=== PATIENT | female | born 1995 | race Caucasian/White ===

== ENCOUNTER 2017-01-02 09:18 | Emergency (ER) | payer BC ==
[2017-01-02 09:53] VITALS: BP 125/63
--- NOTE | 2017-01-02 09:56 | ED ---
GI/ HPI - HPI Summary HPI Summary: 21 yr old female with the complaint of dysuria, frequency and hesitancy of urination. Onset this morning. she states her sympoms are moderate. She has a history of prior UTI and feels like that is what is going on now. She is on oral contraceptives. She denies fever, chills, back pain. She has no other complaints. - History of Current Complaint Chief Complaint: UCGU Time Seen by Provider: 01/02/17 09:32 Stated Complaint: URINARY COMPLAINT Hx Obtained From: Patient Hx Last Menstrual Period: 3 weeks Onset/Duration: Started Days Ago - 1 Severity: Mild Current Severity: Mild Associated Signs and Symptoms: Positive: Dysuria, UTI Symptoms Aggravating Factor(s): Urination - Allergy/Home Medications Allergies/Adverse Reactions: Allergies Allergy/AdvReac Type Severity Reaction Status Date / Time Sulfamethoxazole Allergy Rash Verified 01/02/17 09:38 w/Trimethoprim [From Bactrim] Home Medications: Home Medications buPROPion TAB* [Wellbutrin TAB*] 75 mg PO DAILY 01/02/17 [History Confirmed ] PMH/Surg Hx/FS Hx/Imm Hx Endocrine/Hematology History: Denies: Hx Diabetes Respiratory History: Denies: Hx Asthma - Immunization History Immunizations Up to Date: Yes Infectious Disease History: No Infectious Disease History: Denies: Traveled Outside the [place] in Last 30 Days - Family History Known Family History: Positive: Cardiac Disease - MATERNAL GRANDFATHER STOKE X 2 Negative: Hypertension, Diabetes - Social History Alcohol Use: Occasionally Substance Use Type: Reports: None Smoking Status (MU): Never Smoked Tobacco Review of Systems Constitutional: Negative Eyes: Negative ENT: Negative Cardiovascular: Negative Respiratory: Negative Positive: dysuria, frequency All Other Systems Reviewed And Are Negative: Yes Physical Exam Triage Information Reviewed: Yes Vital Signs On Initial Exam: Initial Vitals Temp Pulse Resp BP 98.1 F 63 18 125/63 01/02/17 09:33 01/02/17 09:33 01/02/17 09:33 01/02/17 09:33 Vital Signs Reviewed: Yes Appearance: Positive: Well-Appearing, No Pain Distress Skin: Positive: Warm Head/Face: Positive: Normal Head/Face Inspection Eyes: Positive: EOMI ENT: Positive: Normal ENT inspection Respiratory/Lung Sounds: Positive: Clear to Auscultation, Breath Sounds Present Cardiovascular: Positive: RRR. Negative: Murmur Abdomen Description: Positive: Nontender Musculoskeletal: Positive: Strength/ROM Intact Neurological: Positive: Sensory/Motor Intact, Alert, Oriented to Person Place, Time, CN Intact II-III Psychiatric: Positive: Normal - [place] Coma Scale Best Eye Response: 4 - Spontaneous Best Motor Response: 6 - Obeys Commands Best Verbal Response: 5 - Oriented Diagnostics - Vital Signs Vital Signs Temp Pulse Resp BP 01/02/17 09:33 98.1 F 63 18 125/63 - Laboratory Lab Results: Lab Results 01/02/17 Range/Units 09:33 POC Urine Color Yellow POC Urine Clarity Cloudy POC Urine pH 6.0 (5-9) POC Ur Specif [place] >= 1.030 (1.010-1.030) POC Urine Protein Trace H (Negative) POC Ur Glucose (UA) Negative (Negative) POC Urine Ketones Negative (Negative) POC Urine Blood Trace-intact H (Negative) POC Urine Nitrite Negative (Negative) POC Urine Bilirubin Negative (Negative) POC Urine Urobilinogen 0.2 (Negative) POC U Leukocyte Esteras 1+ H (Negative) Lab Statement: Any lab studies that have been ordered have been reviewed, and results considered in the medical decision making process. GIGU Course/Dx - Course Course Of Treatment: 21 yr old female with UTI symptoms. DC home on keflex. - Diagnoses Provider Diagnoses: UTI (urinary tract infection) Discharge - Discharge Plan Condition: Good Disposition: HOME Prescriptions: Cephalexin CAP* [Keflex CAP*] 500 mg PO TID #20 cap Patient Education Materials: Urinary Tract Infection in Women (ED) Referrals: Non Staff,Doctor [Primary Care Provider] - [facility] [place] [facility] [Outside]
== END 2017-01-02 10:10 | disposition home or self-care (01) ==
LOC: UCCORT 09:18
DX: N39.0 Urinary tract infection, site not specified (principal); Z32.02 Encounter for pregnancy test, result negative; Z88.2 Allergy status to sulfonamides
CPT/HCPCS: 81003; 84702; 87086; 99212; G0463

== ENCOUNTER 2017-06-10 19:29 | Emergency (ER) | payer BC | END 2017-06-10 21:05 | disposition left against medical advice (07) | LOC: UCCORT 19:29 | DX: N39.0 Urinary tract infection, site not specified (principal); Z53.21 Procedure and treatment not carried out due to patient leaving prior to being seen by health care provider ==

== ENCOUNTER 2017-06-13 12:46 | Emergency (ER) | payer BC ==
[2017-06-13 15:26] VITALS: BP 129/63
--- NOTE | 2017-06-13 15:41 | UC ---
Complaint Female HPI - HPI Summary HPI Summary: 21 up female with urgency and frequency of urination x 3 days no f/c no vag d/c mild cough and nasal congestion - History Of Current Complaint Chief Complaint: UCGI Stated Complaint: UTI SYMPTOMS Time Seen by Provider: 06/13/17 15:27 Hx Obtained From: Patient Hx Last Menstrual Period: 06/02/17 Onset/Duration: Gradual Onset Timing: Constant Severity Initially: Mild Severity Currently: Mild Pain Intensity: 0 Pain Scale Used: 0-10 Numeric Character: Not Applicable Aggravating Factor(s): Nothing Associated Signs And Symptoms: Positive: Negative - Allergies/Home Medications Allergies/Adverse Reactions: Allergies Allergy/AdvReac Type Severity Reaction Status Date / Time sulfamethoxazole Allergy Rash Verified 06/13/17 15:16 [From Bactrim] trimethoprim [From Bactrim] Allergy Rash Verified 06/13/17 15:16 PMH/Surg Hx/FS Hx/Imm Hx Previously Healthy: Yes - Surgical History Surgical History: None - Family History Known Family History: Positive: Cardiac Disease - MATERNAL GRANDFATHER STOKE X 2 , Hypertension Negative: Diabetes - Social History Alcohol Use: None Substance Use Type: None Smoking Status (MU): Never Smoked Tobacco - Immunization History Vaccination Up to Date: Yes Review of Systems Constitutional: Negative Skin: Negative Eyes: Negative ENT: Nasal Discharge Respiratory: Cough Cardiovascular: Negative Gastrointestinal: Negative Genitourinary: Frequency, Urgency Motor: Negative Neurovascular: Negative Musculoskeletal: Negative Neurological: Negative Psychological: Negative Is Patient Immunocompromised?: No All Other Systems Reviewed And Are Negative: Yes Physical Exam Triage Information Reviewed: Yes Appearance: Well-Appearing, No Pain Distress, Well-Nourished Vital Signs: Initial Vital Signs Temp 98.4 F 06/13/17 15:15 Pulse 63 06/13/17 15:15 Resp 14 06/13/17 15:15 BP 129/63 06/13/17 15:15 Pulse Ox 100 06/13/17 15:15 Vital Signs Reviewed: Yes Eyes: Positive: Conjunctiva Clear ENT: Positive: Nasal congestion, Nasal drainage, Muffled voice, Hoarse voice Neck: Positive: Supple, Nontender, No Lymphadenopathy Respiratory: Positive: Lungs clear, Normal breath sounds, No respiratory distress, No accessory muscle use Cardiovascular: Positive: RRR, No Murmur Musculoskeletal: Positive: ROM Intact, No Edema Neurological: Positive: Alert Psychological Exam: Normal Complaint Female Dx - Differential Dx/Diagnosis Provider Diagnoses: acute cystitis. viral URI Discharge - Discharge Plan Condition: Stable Disposition: HOME Prescriptions: Cephalexin CAP* [Keflex CAP*] 500 mg PO BID #10 cap Patient Education Materials: Urinary Tract Infection in Women (ED) Referrals: Non Staff,Doctor [Primary Care Provider] - Additional Instructions: recheck in 2-3 days if not better a culture is pending
== END 2017-06-13 15:42 | disposition home or self-care (01) ==
LOC: UCCORT 12:46
DX: N30.00 Acute cystitis without hematuria (principal); Z32.02 Encounter for pregnancy test, result negative; J06.9 Acute upper respiratory infection, unspecified; Z88.1 Allergy status to other antibiotic agents
CPT/HCPCS: 81003; 84702; 87077; 87086; 87186; 99212; G0463

== ENCOUNTER 2018-08-20 15:50 | Emergency (ER) | payer BC ==
[2018-08-20 16:06] VITALS: BP 142/82
--- NOTE | 2018-08-20 16:29 | UC ---
Throat Pain/Nasal [place] HPI - HPI Summary HPI Summary: 22-year-old female presents with 3-4 day history of fever, chills, body aches, fatigue, nasal congestion, sore throat, and occasional nonproductive cough. Max temperature 103 F. Also reports some mild nausea. Denies ear pain, dysphagia, chest pain, shortness of breath, abdominal pain, vomiting, or diarrhea. - History of Current Complaint Chief Complaint: UCGeneralIllness Stated Complaint: FEVER, SORE THROAT Time Seen by Provider: 08/20/18 16:25 Hx Obtained From: Patient Hx Last Menstrual Period: august 20 Pain Intensity: 2 - Allergies/Home Medications Allergies/Adverse Reactions: Allergies Allergy/AdvReac Type Severity Reaction Status Date / Time sulfamethoxazole Allergy Rash Verified 08/20/18 16:06 [From Bactrim] trimethoprim [From Bactrim] Allergy Rash Verified 08/20/18 16:06 Home Medications: Home Medications FLUoxetine CAP* [PROzac CAP*] 10 mg PO DAILY 08/20/18 [History Confirmed ] PMH/Surg Hx/FS Hx/Imm Hx Previously Healthy: Yes Psychological History: Depression - Surgical History Surgical History: None - Family History Known Family History: Positive: Cardiac Disease - MATERNAL GRANDFATHER STOKE X 2 , Hypertension Negative: Diabetes - Social History Occupation: Student Lives: Dormitory/Roommates Alcohol Use: Rare Substance Use Type: Marijuana Substance Use Comment - Amount & Last Used: last week Smoking Status (MU): Never Smoked Tobacco - Immunization History Vaccination Up to Date: Yes Review of Systems All Other Systems Reviewed And Are Negative: Yes Constitutional: Positive: Fever, Chills, Fatigue Skin: Negative: Rash Eyes: Negative: Drainage, Eye Redness ENT: Positive: Sore Throat, Nasal Discharge, Sinus Congestion. Negative: Ear Ache, Sinus Pain/Tenderness Respiratory: Positive: Cough. Negative: Shortness Of Breath Cardiovascular: Negative: Palpitations, Chest Pain Gastrointestinal: Negative: Abdominal Pain, Vomiting, Diarrhea, Nausea Genitourinary: Positive: Negative Musculoskeletal: Positive: Myalgia Neurological: Positive: Negative Is Patient Immunocompromised?: No Physical Exam - Summary Physical Exam Summary: GENERAL APPEARANCE: Well developed, well nourished, alert and cooperative, and appears to be in no acute distress. EYES: Conjunctiva clear. No drainage. EARS: External auditory canals and tympanic membranes clear, hearing grossly intact. NOSE: Mild-moderate nasal congestion without nasal discharge. THROAT: Pharyngeal erythema. 2+ tonsils without exudate or lesions. Uvula midline. Oral cavity normal. Teeth and gingiva in good general condition. NECK: Neck supple, non-tender without lymphadenopathy. CARDIAC: Normal S1 and S2. No S3, S4 or murmurs. Rhythm is regular. There is no peripheral edema, cyanosis or pallor. Extremities are warm and well perfused. Capillary refill is less than 2 seconds. Peripheral pulses intact. LUNGS: Clear to auscultation without rales, rhonchi, wheezing or diminished breath sounds. Dry, non-productive cough. ABDOMEN: Positive bowel sounds. Soft, nondistended, nontender. No guarding or rebound. No masses or hepatosplenomegally. MUSKULOSKELETAL: ROM intact to all extremities. No joint erythema or tenderness. Normal muscular development. Normal gait. SKIN: Skin normal color, texture and turgor with no lesions or eruptions. Triage Information Reviewed: Yes Vital Signs: Initial Vital Signs Temp 98.8 F 08/20/18 16:02 Pulse 80 08/20/18 16:02 Resp 18 08/20/18 16:02 BP 142/82 08/20/18 16:02 Pulse Ox 100 08/20/18 16:02 Vital Signs Reviewed: Yes Throat Pain/Nasal Course/Dx - Course Course Of Treatment: 22-year-old female presents with 3-4 day history of fever, chills, body aches, fatigue, nasal congestion, sore throat, and occasional nonproductive cough. Max temperature 103 F. Also reports some mild nausea. Denies ear pain, dysphagia, chest pain, shortness of breath, abdominal pain, vomiting, or diarrhea. Afebrile. Vital signs stable. Exam revealed mild to moderate nasal congestion , pharyngeal erythema, 2+ tonsils without exudate, no cervical lymphadenopathy, clear bilateral breath sounds, and a dry nonproductive cough. Rapid strep test was negative. Recommending symptomatically treatment for a viral URI versus influenza. She is to return here or follow up with the [facility] in 5-7 days if symptoms do not improve. Anticipatory guidance and warning symptoms are reviewed with the patient. Verbalizes understanding and agrees with plan of care. - Differential Dx/Diagnosis Differential Diagnosis/HQI/PQRI: Mononucleosis, Otitis Media, Pharyngitis, Tonsillitis, URI Provider Diagnosis: Viral URI Discharge - Sign-Out/Discharge Documenting (check all that apply): Patient Departure All imaging exams completed and their final reports reviewed: No Studies - Discharge Plan Condition: Stable Disposition: HOME Patient Education Materials: Upper Respiratory Infection (ED) Referrals: No Primary Care Phys,NOPCP [Primary Care Provider] - Additional Instructions: The rapid strep test today was negative. Your symptoms are consistent with a viral upper respiratory infection or influenza. These viral illnesses do not respond to antibiotic and typically run their course over 7-10 days with the first 3-5 days being the worst of the symptoms. Get plenty of rest. Drink plenty of fluids to avoid dehydration especially if you are running any fever. Take over the counter acetaminophen (Tylenol) or ibuprofen (Advil, Motrin) according to directions as needed for pain or fever. Use an over the counter decongestant such as Sudafed according to directions as needed for congestion.. Use salt water gargles several times a day if you have a sore throat. You may also use Chloraseptic spray or Cepacol lonzenges according to directions which contain a numbing medication and can provide some temporary relief from your sore throat. Return here or follow up at the [facility] in 5-7 days if symptoms persist. Seek immediate medical attention in the emergency room if you have fever greater than 100.5 F despite taking acetaminophen or ibuprofen, have chest pain , difficulty breathing, are unable to swallow, or have any worsening of symptoms. - Billing Disposition and Condition Condition: STABLE Disposition: Home
== END 2018-08-20 16:47 | disposition home or self-care (01) ==
LOC: UCCORT 15:50
DX: J06.9 Acute upper respiratory infection, unspecified (principal); F32.9 Major depressive disorder, single episode, unspecified; Z88.2 Allergy status to sulfonamides; Z88.8 Allergy status to other drugs, medicaments and biological substances
CPT/HCPCS: 87651; 99211; G0463